=== PATIENT | female | born 1995 | race Caucasian/White ===

== ENCOUNTER → 2020-05-24 11:15 | Observation (INO) ==
[2020-05-24 09:56] LABS: Basophils % 0.4 %; Eosinophils # 0.1 K/mcL (0.0-0.6); Eosinophils % 0.5 %; Hematocrit 40.7 % (35.3-44.9); Hemoglobin 13.5 g/dL (11.5-15.4); Immature Granulocytes % 0.4 % (0-4); Lymphocytes % 21.9 %; Mean Corpuscular HGB Conc 33.2 g/dL (31.6-35.5); Mean Corpuscular Hemoglobin 29.6 pg (28.0-33.3); Mean Corpuscular Volume 89.3 fL (83.0-100.0); Mean Platelet Volume 11.6 fL (9.4-12.4); Monocytes # 0.6 K/mcL (0.0-1.3); Monocytes % 6.4 %; Neutrophils # 6.4 K/mcL (1.6-8.9); Platelet Count 194 K/mcL (140-400); Red Blood Count 4.56 M/mcL (3.82-4.97); Red Cell Distribution Width 13.7 % (11.5-14.5); Segmented Neutrophils % 70.4 %; White Blood Count 9.2 K/mcL (4.3-11.1)
[2020-05-24 10:03] LABS: Protein/Creatinine Ratio,Urine 0.28 mg/mg (0.00-0.20)
[2020-05-24 10:23] LABS: Alanine Aminotransferase 10 Units/L (7-52); Aspartate Amino Transferase 18 Units/L (13-39); BUN/Creatinine Ratio 18 (6-26); Blood Urea Nitrogen 14 mg/dL (6-20); Lactate Dehydrogenase 142 Units/L (140-271); Uric Acid 6.7 mg/dL (2.3-7.6); eGFR For African Americans > 60 (> 60); eGFR For Non-African Americans > 60 (> 60)
== END | disposition home or self-care (01) ==
LOC: 1NENULAB
PROVIDERS: ADMIT Advanced Practice Midwife; ATTEND Advanced Practice Midwife

== ENCOUNTER 2020-06-06 05:47 | Inpatient (IN) ==
[2020-06-06] MEDS ORDERED: Metoclopramide 10 MG/2 ML VIAL IVP PRN (05:54)
[2020-06-06] MEDS ORDERED: Azithromycin 500 MG in 0.9 % Sodium Chloride 250 ML IVPB ONE (05:54)
[2020-06-06] MEDS ORDERED: *HR* Nalbuphine 10 MG/ML AMPUL IV PRN (05:54)
[2020-06-06] MEDS ORDERED: Naloxone 0.4 MG/ML INJ IVP PRN ×2 (05:54→08:30)
[2020-06-06] MEDS ORDERED: *HR* FentaNYL (PF) 100 MCG/2 ML VIAL IVP PRN (05:54)
[2020-06-06] MEDS ORDERED: Famotidine 20 MG/2 ML VIAL IVP PRN (05:54)
[2020-06-06] MEDS ORDERED: Lidocaine 1% 20 ML MDV INFILT PRN (05:54)
[2020-06-06] MEDS ORDERED: Ondansetron 4 MG/2 ML VIAL IVP PRN ×2 (05:54→08:30)
[2020-06-06] MEDS ORDERED: miSOPROStoL 25 MCG TABLET PO PRN (05:58)
[2020-06-06 06:22] VITALS: BP 137/96
[2020-06-06 06:34] LABS: Basophils % 0.3 %; Eosinophils # 0.1 K/mcL (0.0-0.6); Eosinophils % 0.9 %; Hematocrit 39.6 % (35.3-44.9); Hemoglobin 13.3 g/dL (11.5-15.4); Immature Granulocytes % 0.2 % (0-4); Lymphocytes # 2.6 K/mcL (0.6-4.6); Lymphocytes % 28.6 %; Mean Corpuscular HGB Conc 33.6 g/dL (31.6-35.5); Mean Corpuscular Hemoglobin 30.4 pg (28.0-33.3); Mean Corpuscular Volume 90.4 fL (83.0-100.0); Mean Platelet Volume 11.9 fL (9.4-12.4); Monocytes # 0.6 K/mcL (0.0-1.3); Monocytes % 6.5 %; Neutrophils # 5.7 K/mcL (1.6-8.9); Platelet Count 160 K/mcL (140-400); Red Blood Count 4.38 M/mcL (3.82-4.97); Segmented Neutrophils % 63.5 %; White Blood Count 8.9 K/mcL (4.3-11.1)
[2020-06-06 06:47] LABS: Protein/Creatinine Ratio,Urine 0.4 mg/mg (0.00-0.20)
[2020-06-06 06:57] LABS: Alanine Aminotransferase 10 Units/L (7-52); Aspartate Amino Transferase 17 Units/L (13-39); BUN/Creatinine Ratio 14 (6-26); Blood Urea Nitrogen 11 mg/dL (6-20); Lactate Dehydrogenase 122 Units/L (140-271); Uric Acid 6.4 mg/dL (2.3-7.6); eGFR For African Americans > 60 (> 60); eGFR For Non-African Americans > 60 (> 60)
[2020-06-06] MEDS ORDERED: EPHEDrine 50 MG/ML VIAL IVP PRN (08:30)
[2020-06-06] MEDS ORDERED: Epidural Premix (fent/bupiv) 110 ML EP SCH (08:30)
[2020-06-06] MEDS ORDERED: Ropivacaine/PF 0.2% 20 ML VIAL EP ONE (08:30)
[2020-06-06 09:09] LABS: Adenovirus Not Detected (Not Detect); Coronavirus 229E Not Detected (Not Detect); Coronavirus HKU1 Not Detected (Not Detect); Coronavirus NL63 DETECTED (Not Detect)
[2020-06-06 09:10] LABS: Coronavirus OC43 Not Detected (Not Detect)
[2020-06-06 09:11] LABS: Bordetella Pertussis Not Detected (Not Detect); Chlamydophila pneumoniae Not Detected (Not Detect); Human Metapneumovirus Not Detected (Not Detect); Human Rhinovirus/Enterovirus Not Detected (Not Detect); Influenza A Subtype 2009 H1 Not Detected (Not Detect); Influenza B Not Detected (Not Detect); Mycoplasma pneumoniae Not Detected (Not Detect); Parainfluenza Virus 1 Not Detected (Not Detect); Parainfluenza Virus 2 Not Detected (Not Detect); Parainfluenza Virus 3 Not Detected (Not Detect); Parainfluenza Virus 4 Not Detected (Not Detect); Respiratory Syncytial Virus Not Detected (Not Detect); SARS-CoV-2 Not Detected (Not Detect)
[2020-06-06 09:45] LABS: Amphetamine Screen,Urine Negative ng/mL (Cutoff=1000); Barbiturate Screen,Urine Negative ng/mL (Cutoff=200); Benzodiazepines Screen,Urine Negative ng/mL (Cutoff=200); Cannabinoid Screen,Urine Negative ng/mL (Cutoff = 50); Cocaine Screen,Urine Negative ng/mL (Cutoff= 300); Opiate Screen,Urine Negative ng/mL (Cutoff=300); Phencyclidine Screen,Urine Negative ng/mL (Cutoff=25)
[2020-06-06] MEDS ORDERED: Oxytocin 20 units/ LR 1000 mL 20 UNIT/1,000 ML BAG IVC SCH (12:45)
[2020-06-06] MEDS: Ringers Solution, Lactated 1,000 ML IVC SCH ×2 (13:04→20:54)
[2020-06-06] MEDS: miSOPROStoL 25 MCG TABLET VG SCH (19:50)
[2020-06-07] MEDS: miSOPROStoL 25 MCG TABLET VG SCH (00:14)
== END 2020-06-07 09:35 | disposition home or self-care (01) | DRG 833 ==
LOC: 1NENULAB 05:47
PROVIDERS: ADMIT Registered Nurse; ATTEND Registered Nurse

== ENCOUNTER 2020-06-12 10:02 | Inpatient (IN) ==
[2020-06-12] MEDS ORDERED: Ondansetron 4 MG/2 ML VIAL IVP PRN (10:20)
[2020-06-12] MEDS ORDERED: *HR* Nalbuphine 10 MG/ML AMPUL IV PRN (10:20)
[2020-06-12] MEDS ORDERED: Metoclopramide 10 MG/2 ML VIAL IVP PRN (10:20)
[2020-06-12] MEDS ORDERED: Lidocaine 1% 20 ML MDV INFILT PRN (10:20)
[2020-06-12] MEDS ORDERED: Azithromycin 500 MG in 0.9 % Sodium Chloride 250 ML IVPB PRN (10:20)
[2020-06-12] MEDS ORDERED: Naloxone 0.4 MG/ML INJ IVP PRN (10:20)
[2020-06-12] MEDS ORDERED: Famotidine 20 MG/2 ML VIAL IVP PRN (10:20)
[2020-06-12] MEDS ORDERED: Ringers Solution, Lactated 1,000 ML IVC SCH (10:30)
[2020-06-12] MEDS ORDERED: Oxytocin 20 units/ LR 1000 mL 20 UNIT/1,000 ML BAG IVC SCH (10:30)
[2020-06-12 11:25] LABS: Basophils # 0.1 K/mcL (0.0-0.2); Basophils % 0.4 %; Eosinophils # 0.1 K/mcL (0.0-0.6); Eosinophils % 0.4 %; Hematocrit 40.1 % (35.3-44.9); Hemoglobin 13.4 g/dL (11.5-15.4); Immature Granulocytes % 0.4 % (0-4); Mean Corpuscular HGB Conc 33.4 g/dL (31.6-35.5); Mean Corpuscular Hemoglobin 29.8 pg (28.0-33.3); Mean Corpuscular Volume 89.3 fL (83.0-100.0); Mean Platelet Volume 11.4 fL (9.4-12.4); Monocytes # 0.7 K/mcL (0.0-1.3); Monocytes % 6.6 %; Neutrophils # 8.3 K/mcL (1.6-8.9); Platelet Count 162 K/mcL (140-400); Red Blood Count 4.49 M/mcL (3.82-4.97); Red Cell Distribution Width 13.8 % (11.5-14.5); Segmented Neutrophils % 74.2 %; White Blood Count 11.2 K/mcL (4.3-11.1)
[2020-06-12 11:36] LABS: Amphetamine Screen,Urine Negative ng/mL (Cutoff=1000); Barbiturate Screen,Urine Negative ng/mL (Cutoff=200); Benzodiazepines Screen,Urine Negative ng/mL (Cutoff=200); Cannabinoid Screen,Urine Negative ng/mL (Cutoff = 50); Cocaine Screen,Urine Negative ng/mL (Cutoff= 300); Creatinine,Urine 75 mg/dL; Opiate Screen,Urine Negative ng/mL (Cutoff=300); Phencyclidine Screen,Urine Negative ng/mL (Cutoff=25); Protein/Creatinine Ratio,Urine 0.28 mg/mg (0.00-0.20)
[2020-06-12 11:41] LABS: Alanine Aminotransferase 26 Units/L (7-52); Aspartate Amino Transferase 27 Units/L (13-39); BUN/Creatinine Ratio 14 (6-26); Blood Urea Nitrogen 11 mg/dL (6-20); Lactate Dehydrogenase 149 Units/L (140-271); Uric Acid 6.9 mg/dL (2.3-7.6); eGFR For African Americans > 60 (> 60); eGFR For Non-African Americans > 60 (> 60)
[2020-06-12] MEDS: miSOPROStoL 25 MCG TABLET PO PRN ×2 (11:50→15:40)
[2020-06-12 12:09] LABS: Adenovirus Not Detected (Not Detect); Coronavirus 229E Not Detected (Not Detect); Coronavirus HKU1 Not Detected (Not Detect); Coronavirus NL63 DETECTED (Not Detect); Coronavirus OC43 Not Detected (Not Detect)
[2020-06-12 12:10] LABS: Bordetella Pertussis Not Detected (Not Detect); Chlamydophila pneumoniae Not Detected (Not Detect); Human Metapneumovirus Not Detected (Not Detect); Human Rhinovirus/Enterovirus Not Detected (Not Detect); Influenza A Subtype 2009 H1 Not Detected (Not Detect); Influenza B Not Detected (Not Detect); Mycoplasma pneumoniae Not Detected (Not Detect); Parainfluenza Virus 1 Not Detected (Not Detect); Parainfluenza Virus 2 Not Detected (Not Detect); Parainfluenza Virus 3 Not Detected (Not Detect); Parainfluenza Virus 4 Not Detected (Not Detect); Respiratory Syncytial Virus Not Detected (Not Detect); SARS-CoV-2 Not Detected (Not Detect)
[2020-06-12] MEDS ORDERED: Ropivacaine/PF 0.2% 20 ML VIAL EP ONE (16:03)
[2020-06-12] MEDS ORDERED: Bupivacaine-MPF 0.25% 10 ML VIAL EP ONE (16:03)
[2020-06-12] MEDS ORDERED: EPHEDrine 50 MG/ML VIAL IVP PRN (16:03)
[2020-06-12] MEDS ORDERED: *HR* FentaNYL (PF) 100 MCG/2 ML VIAL ONE (16:05)
[2020-06-13] MEDS: Epidural Premix (fent/bupiv) 110 ML EP SCH ×2 (10:31→15:58)
[2020-06-13] MEDS ORDERED: Ropivacaine/PF 0.2% 20 ML VIAL ONE (12:12)
[2020-06-13] MEDS ORDERED: Ampicillin 2 GM in 0.9 % Sodium Chloride Mini Bag 100 ML IVPB ONE (12:29)
[2020-06-13] MEDS ORDERED: *HR* Labetalol 20 MG/4 ML SYRINGE IVP ONE (15:26)
[2020-06-13] MEDS ORDERED: Ampicillin 1,000 MG in 0.9 % Sodium Chloride Mini Bag 100 ML IVPB SCH (16:00)
[2020-06-13] MEDS ORDERED: Benzocaine/Menthol 56 GM AEROSOL SPRAY TP PRN (23:59)
[2020-06-13] MEDS ORDERED: Lanolin 7 G OINT...G. TP PRN (23:59)
[2020-06-13] MEDS ORDERED: Oxytocin 20 units/ LR 1000 mL 20 UNIT/1,000 ML BAG IVC SCH (23:59)
[2020-06-13] MEDS ORDERED: Acetaminophen 325 MG TABLET PO PRN (23:59)
[2020-06-14] MEDS: Ibuprofen 600 MG TABLET PO PRN ×3 (00:58→19:30)
[2020-06-14 05:14] LABS: Basophils # 0.1 K/mcL (0.0-0.2); Basophils % 0.2 %; Eosinophils % 0.1 %; Hematocrit 31.8 % (35.3-44.9); Immature Granulocytes % 1.2 % (0-4); Lymphocytes # 3.1 K/mcL (0.6-4.6); Lymphocytes % 12.9 %; Mean Corpuscular Hemoglobin 29.7 pg (28.0-33.3); Mean Corpuscular Volume 89.8 fL (83.0-100.0); Mean Platelet Volume 11.7 fL (9.4-12.4); Monocytes # 1.7 K/mcL (0.0-1.3); Monocytes % 7.2 %; Neutrophils # 18.7 K/mcL (1.6-8.9); Nucleated Red Blood Cells 0.1 /100 WBC (0); Platelet Count 173 K/mcL (140-400); Red Blood Count 3.54 M/mcL (3.82-4.97); Red Cell Distribution Width 13.8 % (11.5-14.5); Segmented Neutrophils % 78.4 %
[2020-06-14 05:15] LABS: Hemoglobin 10.5 g/dL (11.5-15.4); White Blood Count 23.9 K/mcL (4.3-11.1)
[2020-06-14] MEDS: Prenatal Vit/FA 1 EACH TABLET PO SCH (09:34)
[2020-06-15 08:16] VITALS: BP 123/85
[2020-06-15] MEDS: Prenatal Vit/FA 1 EACH TABLET PO SCH (08:21)
[2020-06-15] MEDS: Ibuprofen 600 MG TABLET PO PRN (08:21)
== END 2020-06-15 13:12 | disposition home or self-care (01) | DRG 807 ==
LOC: 1NENULAB 10:02 → 1NENUOBS 06-13 23:58
PROVIDERS: ADMIT Advanced Practice Midwife; ATTEND Advanced Practice Midwife